=== PATIENT | male | born 1990 | race Caucasian/White ===

== ENCOUNTER 2018-04-09 19:12 | Emergency (ER) | payer BC, OTHER, SELFPAY ==
[2018-04-09] MEDS ORDERED: LIDOCAINE 1% W/EPI 1:100,000 MDV 50 ML VIAL ONE (20:18)
--- NOTE | 2018-04-09 21:15 | EDPHYS ---
Physician Documentation [facility] Name: Marty Hudson Age: 28 yrs Sex: Male : 1990 Arrival Date: 04/09/2018 Time: 19:20 Bed 24 Private MD: ED Physician Feroz Connolly HPI: 04/09 20:24 This 28 yrs old Male presents to ER via Ambulatory with complaints of jr8 Laceration To Forehead. 20:24 The patient has a laceration related to: playing, occurred at home. The laceration(s) jr8 is(are) located on the face. Onset: The symptoms/episode began/occurred acutely, today. Associated signs and symptoms: The patient has no apparent associated signs or symptoms. The patient has not experienced similar symptoms in the past. The patient has not recently seen a physician. Patient was jumping around at home and hit forehead on corner of wall causing laceration. Denies LOC . Historical: - Allergies: 19:42 No Known Allergies; mg2 - Home Meds: 19:42 None [Active]; mg2 - PMHx: 19:42 None; mg2 - PSHx: 19:42 removal of one testicle; mg2 - Immunization history:: Last tetanus immunization: < 5 years ago. - Social history:: Smoking status: Patient uses tobacco products, smokes one-half pack cigarettes per day, Patient uses alcohol, occasionally. - Ebola Screening: : No symptoms or risks identified at this time. ROS: 20:24 Eyes: Negative for injury, pain, redness, and discharge, ENT: Negative for injury, jr8 pain, and discharge, Neck: Negative for injury, pain, and swelling, Cardiovascular: Negative for chest pain, palpitations, and edema, Respiratory: Negative for shortness of breath, cough, wheezing, and pleuritic chest pain, Abdomen/GI: Negative for abdominal pain, nausea, vomiting, diarrhea, and constipation, Back: Negative for injury and pain, MS/Extremity: Negative for injury and deformity, Neuro: Negative for headache, weakness, numbness, tingling, and seizure. 20:24 Skin: Positive for laceration(s). Exam: 20:24 Eyes: Pupils equal round and reactive to light, extra-ocular motions intact. Lids and jr8 lashes normal. Conjunctiva and sclera are non-icteric and not injected. Cornea within normal limits. Periorbital areas with no swelling, redness, or edema. ENT: Nares patent. No nasal discharge, no septal abnormalities noted. Tympanic membranes are normal and external auditory canals are clear. Oropharynx with no redness, swelling, or masses, exudates, or evidence of obstruction, uvula midline. Mucous membranes moist. Neck: Trachea midline, no thyromegaly or masses palpated, and no cervical lymphadenopathy. Supple, full range of motion without nuchal rigidity, or vertebral point tenderness. No Meningismus. Cardiovascular: Regular rate and rhythm with a normal S1 and S2. No gallops, murmurs, or rubs. Normal PMI, no JVD. No pulse deficits. Respiratory: Lungs have equal breath sounds bilaterally, clear to auscultation and percussion. No rales, rhonchi or wheezes noted. No increased work of breathing, no retractions or nasal flaring. Abdomen/GI: Soft, non-tender, with normal bowel sounds. No distension or tympany. No guarding or rebound. No evidence of tenderness throughout. Back: No spinal tenderness. No costovertebral tenderness. Full range of motion. Skin: Warm, dry with normal turgor. Normal color with no rashes, no lesions, and no evidence of cellulitis. MS/ Extremity: Pulses equal, no cyanosis. Neurovascular intact. Full, normal range of motion. Neuro: Awake and alert, GCS 15, oriented to person, place, time, and situation. Cranial nerves II-XII grossly intact. Motor strength 5/5 in all extremities. Sensory grossly intact. Cerebellar exam normal. Normal gait. 20:24 Head/face: Noted is a laceration(s), that is deep, that is linear, 4 cm(s), of the forehead. Vital Signs: 19:42 BP 143 / 80; Pulse 67; Resp 18; Temp 97.6(T); Pulse Ox 100% on R/A; Weight 99.79 kg; mg2 Height 6 ft. 0 in. (182.88 cm); Pain 4/10; 21:05 BP 136 / 75; Pulse 85; Resp 18; Pulse Ox 97% on R/A; Pain 3/10; mg2 19:42 Body Mass Index 29.84 (99.79 kg, 182.88 cm) mg2 Laceration: 21:12 Wound Repair of 4cm ( 1.6in ) subcutaneous laceration to forehead. Linear shaped.. jr8 Minimal bleeding noted.. Distal neuro/vascular/tendon intact. Anesthesia: Local anesthetic administered with 3 mls of 1% lidocaine w/ Epi. Wound prep: Extensive cleansing with betadine, Wound explored extensively. Skin closed with 6 5-0 Prolene using interrupted sutures and sterile technique. Patient tolerated well. MDM: 19:50 Patient medically screened. jr8 21:12 Data reviewed: vital signs, nurses notes, and as a result, I will discharge patient. jr8 Data interpreted: Pulse oximetry: on room air is 97 %. Interpretation: normal. Counseling: I had a detailed discussion with the patient and/or guardian regarding: the historical points, exam findings, and any diagnostic results supporting the discharge/admit diagnosis, the need for outpatient follow up, a family practitioner, to return to the emergency department if symptoms worsen or persist or if there are any questions or concerns that arise at home. 04/09 20:16 Order name: Dressing - Wound; Complete Time: 20:56 [facility] 04/09 20:16 Order name: Gloves, Sterile; Complete Time: 20:56 8 04/09 20:16 Order name: Setup Suture Tray; Complete Time: 20:56 jr8 Administered Medications: 20:56 Drug: Lidocaine-Epinephrine -1%: (1:100,000) 1 vials Volume: 20 ml; Route: Infiltration;mg2 Disposition: 04/09/18 21:14 Discharged to Home. Impression: Laceration without foreign body of scalp. - Condition is Stable. - Discharge Instructions: Laceration Care, Adult. - Medication Reconciliation Form, Thank You Letter, Antibiotic Education, Prescription Opioid Use form. - Follow up: Private Physician; When: 5 - 6 days; Reason: Wound Recheck, Recheck today's complaints, Continuance of care, Staple/Suture removal, Re-evaluation by your physician. - Problem is new. - Symptoms have improved. Addendum: 04/11/2018 04:19 Co-signature as Attending Physician, Feroz Connolly MD I agree with the assessment and p s1 plan of care. Signatures: Messi Rubio PA PA jr8 Feroz Connolly MD MD ps1 Mika Barba RN RN mg2 Corrections: (The following items were deleted from the chart) 04/09 21:30 21:14 04/09/2018 21:14 Discharged to Home. Impression: Laceration without foreign body mg2 of scalp. Condition is Stable. Forms are Medication Reconciliation Form, Thank You Letter, Antibiotic Education, Prescription Opioid Use. Follow up: Private Physician; When: 5 - 6 days; Reason: Wound Recheck, Recheck today's complaints, Continuance of care, Staple/Suture removal, Re-evaluation by your physician. Problem is new. Symptoms have improved. jr8
--- NOTE | 2018-04-09 21:15 | ER ---
Nurse's Notes [facility] Name: Marty Hudson Age: 28 yrs Sex: Male : 1990 Arrival Date: 04/09/2018 Time: 19:20 Bed 24 Private MD: Diagnosis: Laceration without foreign body of scalp Presentation: 04/09 19:39 Presenting complaint: Patient states: he jump and hit his forehead on the door and mg2 sustained approx 2.5 inch laceration. bleeding controlled. denies n/v and loc. Transition of care: patient was not received from another setting of care. Complicating Factors: There are no complicating factors for this patient. Onset of symptoms was April 09, 2018. Risk Assessment: Do you want to hurt yourself or someone else? Patient reports no desire to harm self or others. Initial Sepsis Screen: Does the patient meet any 2 criteria? No. Patient's initial sepsis screen is negative. Does the patient have a suspected source of infection? No. Patient's initial sepsis screen is negative. Care prior to arrival: None. 19:39 Method Of Arrival: Ambulatory mg2 19:39 Acuity: BLADE 4 mg2 Historical: - Allergies: 19:42 No Known Allergies; mg2 - Home Meds: 19:42 None [Active]; mg2 - PMHx: 19:42 None; mg2 - PSHx: 19:42 removal of one testicle; mg2 - Immunization history:: Last tetanus immunization: < 5 years ago. - Social history:: Smoking status: Patient uses tobacco products, smokes one-half pack cigarettes per day, Patient uses alcohol, occasionally. - Ebola Screening: : No symptoms or risks identified at this time. Screenin:03 Abuse screen: Denies threats or abuse. Denies injuries from another. Nutritional mg2 screening: No deficits noted. Tuberculosis screening: No symptoms or risk factors identified. Fall Risk None identified. Assessment: 21:01 General: Appears in no apparent distress. comfortable, Behavior is calm, cooperative. mg2 Pain: Complains of pain in forehead Pain does not radiate. Pain currently is 4 out of 10 on a pain scale. Quality of pain is described as stinging. Pain: Pain began 1 hour ago. Is intermittent. Neuro: Level of Consciousness is awake, alert, Oriented to person, place, time, situation. Cardiovascular: Capillary refill < 3 seconds Patient's skin is warm and dry. Respiratory: Airway is patent Respiratory effort is even, unlabored, Respiratory pattern is regular, symmetrical. GI: No signs and/or symptoms were reported involving the gastrointestinal system. : No signs and/or symptoms were reported regarding the genitourinary system. EENT: No signs and/or symptoms were reported regarding the EENT system. Derm: Skin is pink, warm \T\ dry. normal, Wound noted forehead Wound is new laceration. Musculoskeletal: Circulation, motion, and sensation intact. Injury Description: Laceration is clean, 2.6 to 7.5 cm long, not bleeding. Vital Signs: 19:42 BP 143 / 80; Pulse 67; Resp 18; Temp 97.6(T); Pulse Ox 100% on R/A; Weight 99.79 kg; mg2 Height 6 ft. 0 in. (182.88 cm); Pain 4/10; 21:05 BP 136 / 75; Pulse 85; Resp 18; Pulse Ox 97% on R/A; Pain 3/10; mg2 19:42 Body Mass Index 29.84 (99.79 kg, 182.88 cm) mg2 ED Course: 19:20 Patient arrived in ED. es 19:29 Mika Barba, BEST is Primary Nurse. mg2 19:41 Triage completed. mg2 19:43 Arm band placed on. mg2 19:49 Messi Rubio PA is PHCP. jr8 19:50 Feroz Connolly MD is Attending Physician. jr8 21:05 No provider procedures requiring assistance completed. Patient did not have IV access mg2 during this emergency room visit. 21:26 Wound care: to laceration located on forehead was cleaned with Betadine, dressed with mg2 steri strips, sutured with 5-0 prolene , 5 stitches made under local anesthesia. 21:29 Patient has correct armband on for positive identification. mg2 Administered Medications: 20:56 Drug: Lidocaine-Epinephrine -1%: (1:100,000) 1 vials Volume: 20 ml; Route: Infiltration;mg2 Outcome: 21:14 Discharge ordered by . jr8 21:28 Discharged to home ambulatory, with family. mg2 21:28 Condition: stable 21:28 Discharge instructions given to patient, family, Instructed on discharge instructions, follow up and referral plans. Demonstrated understanding of instructions, follow-up care. 21:30 Patient left the ED. mg2 Signatures: Christa Alvarado Josh, PA PA jr8 Mika Barba, RN RN mg2
== END 2018-04-09 21:30 | disposition home or self-care (01) ==
LOC: ER 19:12
PROC: 0JQ10ZZ Repair Face Subcutaneous Tissue and Fascia, Open Approach (ICD-10-PCS; principal; 2018-04-09)
DX: S01.81XA Laceration without foreign body of other part of head, initial encounter (principal); W22.01XA Walked into wall, initial encounter; Y93.89 Activity, other specified; Y92.018 Other place in single-family (private) house as the place of occurrence of the external cause; F17.210 Nicotine dependence, cigarettes, uncomplicated
CPT/HCPCS: 99283

== ENCOUNTER 2018-04-15 11:32 | Emergency (ER) | payer OTHER, SELFPAY ==
--- NOTE | 2018-04-15 12:04 | EDPHYS ---
Physician Documentation [facility] Name: Marty Hudson Age: 28 yrs Sex: Male : 1990 Arrival Date: 04/15/2018 Time: 11:35 Bed 12 Private MD: None, None ED Physician Yusuf Knight HPI: 04/15 12:03 This 28 yrs old Male presents to ER via Ambulatory with complaints of Suture pm1 Removal. 12:03 The patient has sutures on the forehead. Previous treatment: The patient was initially pm1 treated on April 09, 2018, the care was rendered at [facility], Treatment type: The patient's original treatment included sutures. Sutures/justino progress: The patient has no c/o's. The wound is well-healing with no redness, swelling, discharge, or dehiscence reported. The patient has not experienced similar symptoms in the past. The patient has been recently seen at the [facility] Emergency Department, last week, laceration repair. Historical: - Allergies: 11:38 No Known Allergies; sv - PSHx: 11:38 removal of one testicle; sv - Immunization history:: Adult Immunizations up to date. - Social history:: Smoking status: Patient/guardian denies using tobacco. - Ebola Screening: : No symptoms or risks identified at this time. ROS: 12:03 Constitutional: Negative for fever, chills, and weight loss, Eyes: Negative for injury, pm1 pain, redness, and discharge, ENT: Negative for injury, pain, and discharge, Neck: Negative for injury, pain, and swelling, Cardiovascular: Negative for chest pain, palpitations, and edema, Respiratory: Negative for shortness of breath, cough, wheezing, and pleuritic chest pain, Abdomen/GI: Negative for abdominal pain, nausea, vomiting, diarrhea, and constipation, Back: Negative for injury and pain, MS/Extremity: Negative for injury and deformity. 12:03 Neuro: Negative for headache, weakness, numbness, tingling, and seizure. 12:03 Skin: Positive for laceration(s), of the forehead. Exam: 12:03 Constitutional: This is a well developed, well nourished patient who is awake, alert, pm1 and in no acute distress. Head/Face: Normocephalic, atraumatic. Eyes: Pupils equal round and reactive to light, extra-ocular motions intact. Lids and lashes normal. Conjunctiva and sclera are non-icteric and not injected. Cornea within normal limits. Periorbital areas with no swelling, redness, or edema. ENT: Nares patent. No nasal discharge, no septal abnormalities noted. Tympanic membranes are normal and external auditory canals are clear. Oropharynx with no redness, swelling, or masses, exudates, or evidence of obstruction, uvula midline. Mucous membranes moist. Neck: Trachea midline, no thyromegaly or masses palpated, and no cervical lymphadenopathy. Supple, full range of motion without nuchal rigidity, or vertebral point tenderness. No Meningismus. Chest/axilla: Normal chest wall appearance and motion. Nontender with no deformity. No lesions are appreciated. Cardiovascular: Regular rate and rhythm with a normal S1 and S2. No gallops, murmurs, or rubs. Normal PMI, no JVD. No pulse deficits. Respiratory: Lungs have equal breath sounds bilaterally, clear to auscultation and percussion. No rales, rhonchi or wheezes noted. No increased work of breathing, no retractions or nasal flaring. Abdomen/GI: Soft, non-tender, with normal bowel sounds. No distension or tympany. No guarding or rebound. No evidence of tenderness throughout. Back: No spinal tenderness. No costovertebral tenderness. Full range of motion. 12:03 Skin: Wound recheck: Suture laceration closure: the wound is healing well, the edges are well approximated, no evidence of dehiscence, no drainage, no erythema, no swelling. Vital Signs: 11:38 BP 132 / 80; Pulse 60; Resp 18; Temp 98; Pulse Ox 97% ; sv Procedures: 12:03 Suture/Staple removal: Removed 6 sutures, from forehead, site appears well healed, pm1 Patient tolerated well. MDM: 11:53 Patient medically screened. pm1 12:03 Data reviewed: vital signs. Counseling: I had a detailed discussion with the patient pm1 and/or guardian regarding: the historical points, exam findings, and any diagnostic results supporting the discharge/admit diagnosis, the need for outpatient follow up, to return to the emergency department if symptoms worsen or persist or if there are any questions or concerns that arise at home. Administered Medications: No medications were administered Disposition: 14:41 Co-signature as Attending Physician, Yusuf Knight MD I agree with the assessment and kdr plan of care. Disposition: 04/15/18 12:04 Discharged to Home. Impression: Encounter for removal of sutures. - Condition is Stable. - Discharge Instructions: Suture Removal, Care After. - Medication Reconciliation Form, Thank You Letter, Antibiotic Education, Prescription Opioid Use form. - Follow up: Emergency Department; When: As needed; Reason: Worsening of condition. Follow up: Private Physician; When: As needed; Reason: Recheck today's complaints, Continuance of care, Re-evaluation by your physician. - Problem is new. - Symptoms have improved. Signatures: Cecily Astorga RN RN Yusuf Downey MD MD kdr Garett Jolly, [employer] pm1 Corrections: (The following items were deleted from the chart) 12:14 12:04 04/15/2018 12:04 Discharged to Home. Impression: Encounter for removal of sv sutures. Condition is Stable. Forms are Medication Reconciliation Form, Thank You Letter, Antibiotic Education, Prescription Opioid Use. Follow up: Emergency Department; When: As needed; Reason: Worsening of condition. Follow up: Private Physician; When: As needed; Reason: Recheck today's complaints, Continuance of care, Re-evaluation by your physician. Problem is new. Symptoms have improved. pm1
--- NOTE | 2018-04-15 12:04 | ER ---
Nurse's Notes [facility] Name: Marty Hudson Age: 28 yrs Sex: Male : 1990 Arrival Date: 04/15/2018 Time: 11:35 Bed 12 Private MD: None, None Diagnosis: Encounter for removal of sutures Presentation: 04/15 11:37 Presenting complaint: Patient states: sutures to be removed from forehead. Transition sv of care: patient was not received from another setting of care. Onset of symptoms was April 09, 2018. Risk Assessment: Do you want to hurt yourself or someone else? Patient reports no desire to harm self or others. Initial Sepsis Screen: Does the patient meet any 2 criteria? No. Patient's initial sepsis screen is negative. Does the patient have a suspected source of infection? No. Patient's initial sepsis screen is negative. Care prior to arrival: None. 11:37 Method Of Arrival: Ambulatory sv 11:37 Acuity: BLADE 5 sv Triage Assessment: 11:37 General: Appears in no apparent distress. comfortable, well developed, Behavior is sv calm, cooperative, appropriate for age. Pain: Denies pain. EENT: No signs and/or symptoms were reported regarding the EENT system. Neuro: Level of Consciousness is awake, alert, obeys commands, Oriented to person, place, time, situation, Moves all extremities. Full function Gait is steady. Respiratory: Respiratory effort is even, unlabored, Respiratory pattern is regular, symmetrical. Derm: Skin is pink, warm \T\ dry. Musculoskeletal: Range of motion: intact in all extremities. Historical: - Allergies: 11:38 No Known Allergies; sv - PSHx: 11:38 removal of one testicle; sv - Immunization history:: Adult Immunizations up to date. - Social history:: Smoking status: Patient/guardian denies using tobacco. - Ebola Screening: : No symptoms or risks identified at this time. Screenin:45 Abuse screen: Denies threats or abuse. Denies injuries from another. Nutritional sv screening: No deficits noted. Tuberculosis screening: No symptoms or risk factors identified. Fall Risk None identified. Assessment: 11:45 Reassessment: No changes from previously documented assessment. See triage assessment. sv Vital Signs: 11:38 BP 132 / 80; Pulse 60; Resp 18; Temp 98; Pulse Ox 97% ; sv ED Course: 11:35 Patient arrived in ED. mr 11:36 None, None is Private Physician. mr 11:37 Triage completed. sv 11:38 Arm band placed on left wrist. sv 11:45 Patient has correct armband on for positive identification. sv 11:45 No provider procedures requiring assistance completed. Patient did not have IV access sv during this emergency room visit. 11:49 Garett Jolly NP is PHCP. pm1 11:49 Yusuf Knight MD is Attending Physician. pm1 12:13 Cecily Astorga, BEST is Primary Nurse. sv Administered Medications: No medications were administered Outcome: 12:04 Discharge ordered by MD. pm1 12:14 Discharged to home ambulatory. sv 12:14 Condition: stable 12:14 Discharge instructions given to patient, Instructed on discharge instructions, follow up and referral plans. Demonstrated understanding of instructions, follow-up care. 12:14 No charge visit due to suture removal. 12:14 Patient left the ED. sv Signatures: Cecily Astorga RN RN Anjelica Engel mr Garett Jolly NP [employer] pm1
== END 2018-04-15 12:14 | disposition home or self-care (01) ==
LOC: ER 11:32
DX: Z48.02 Encounter for removal of sutures (principal)